=== PATIENT | male | born 1940 | race Caucasian/White ===

== ENCOUNTER 2018-09-13 09:15 | Emergency (ER) | payer MEDICARE, MEDICAID ==
[~2018-09-13] VITALS: Ht 165.1 cm; Wt 104.0 kg
[~2018-09-13 09:15] MED LIST: ALBU18HF2 IH; ATOR10TA PO; ATOR10TA69 MT; AZIT500T5 PO; CARV12.545 MT; FLUT1DIS3 INH; FURO40TA5 MT; GABA-529 PO; ISOS10TA2 MT; P50 PO; TIOT18CA3 IH
[2018-09-13] MEDS ORDERED: DULO60CA63 MT (09:35)
[2018-09-13] MEDS ORDERED: LISI-604 MT (09:35)
[2018-09-13] MEDS ORDERED: DONE10TA43 MT (09:35)
[2018-09-13] MEDS ORDERED: AMLO2.5T45 MT (09:35)
[2018-09-13] MEDS ORDERED: ALLO100T MT (09:35)
[2018-09-13] MEDS ORDERED: METF-414 MT (09:35)
[2018-09-13] MEDS ORDERED: CARV6.2548 MT (09:35)
[2018-09-13] MEDS ORDERED: BESI5DRO RIGHTEYE (09:35)
[2018-09-13] MEDS ORDERED: PRED10DR RIGHTEYE (09:35)
[2018-09-13] MEDS ORDERED: P20 MT (09:35)
[2018-09-13] MEDS ORDERED: DOCU-272 PO (09:35)
[2018-09-13] MEDS ORDERED: BROM3DRO RIGHTEYE (09:35)
[2018-09-13] MEDS ORDERED: LINA5TAB MT (09:35)
[2018-09-13] MEDS ORDERED: HYDROCODONE/ACETAMINOPHEN 5/325MG TABLET PO STA (10:44)
[2018-09-13] MEDS ORDERED: SODIUM CHLORIDE 0.9% 1,000 ML IV ONE (10:44)
[2018-09-13 12:13] LABS: CHLORIDE 98 mEq/L (98-107)
[2018-09-13 12:16] LABS: HEMATOCRIT. 39.4 % (42.0-52.0); HEMOGLOBIN. 13.2 g/dL (14.0-18.0); MEAN CORPUSCULAR HEMOGLOBIN 31.8 pg (28.0-32.0); MEAN CORPUSCULAR VOLUME 94.9 fL (80.0-94.0); PLATELET 225 x1000/uL (130-400); RED BLOOD CELL COUNT 4.15 mill/uL (4.7-6.1); RED CELL DISTRIBUTION WIDTH 16.6 % (11.6-14.6)
[2018-09-13 13:33] LABS: PLATELET ESTIMATE NORMAL
[2018-09-13 14:00] VITALS: BP 145/80
== END 2018-09-13 14:00 | disposition home or self-care (01) ==
LOC: ER 10:37
DX: B02.29 Other postherpetic nervous system involvement (principal); J45.909 Unspecified asthma, uncomplicated; E11.9 Type 2 diabetes mellitus without complications; F03.90 Unspecified dementia, unspecified severity, without behavioral disturbance, psychotic disturbance, mood disturbance, and anxiety; E78.00 Pure hypercholesterolemia, unspecified; I10 Essential (primary) hypertension; Z98.890 Other specified postprocedural states; Z79.899 Other long term (current) drug therapy
CPT/HCPCS: 36415; 71045; 80053; 85025; 93005; 99284; J7030

== ENCOUNTER 2019-03-21 12:19 | Inpatient (IN) | payer MEDICARE, MEDICAID ==
[~2019-03-21] VITALS: Ht 170.2 cm; Wt 93.4 kg
[~2019-03-21 12:19] MED LIST changes: +ALLO100T MT; +AMLO2.5T45 MT; +BESI5DRO RIGHTEYE; +BROM3DRO RIGHTEYE; -CARV12.545 MT; +CARV6.2548 MT; +DOCU-272 PO; +DONE10TA43 MT; +DULO60CA63 MT; +HYDR-4001 MT; +IPRA42SP BOTHNSTRLS; +LINA5TAB MT; +LISI-604 MT; +METF-414 MT; +P20 MT; +PRED10DR RIGHTEYE; +RISP05 PO; +TRAM150C25 PO
[2019-03-21] MEDS ORDERED: NITROGLYCERIN OINT 1GM/INCH UDPKT TD ONE (13:45)
[2019-03-21] MEDS ORDERED: FUROSEMIDE 40MG/4ML VIAL IV ONE (13:45)
[2019-03-21 14:32] LABS: BG BASE EXCESS -7.2 mmol/L (-2.0-2.0); BG BILEVEL POS AIRWAY PRESSURE 15/5; BG CARBOXYHEMOGLOBIN 0.3 % (0.5-1.5); BG DEOXYHEMOGLOBIN 6.4 % (0.0-5.0); BG HCO3 ACT 18.4 mmol/L (22.0-26.0); BG METHEMOGLOBIN 0.3 % (0.0-1.5); BG OXYGEN SATURATION 93.6 % (92.0-98.5); BG PCO2 37.7 mmHg (35.0-45.0); BG PH 7.307 (7.350-7.450); BG PO2 76.3 mmHg (75.0-100.0); BG SAMPLE SITE RIGHT RADIAL; BG VENT MODE MASK - BIPAP; BG VENT RATE 16 set
[2019-03-21 14:33] LABS: CHLORIDE 97 mEq/L (98-107)
[2019-03-21 14:34] LABS: BASOPHILS % 0.6 % (0.0-2.0); HEMATOCRIT. 28.6 % (42.0-52.0); HEMOGLOBIN. 9.5 g/dL (14.0-18.0); LYMPHOCYTES % 10.3 % (20.0-50.0); MEAN CORPUSCULAR HEMOGLOBIN 30.2 pg (28.0-32.0); MEAN CORPUSCULAR VOLUME 90.8 fL (80.0-94.0); MEAN PLATELET VOLUME 8.4 fl (7.4-10.4); MONOCYTES % 8.7 % (2.0-8.0); NEUTROPHILS % 79.4 % (40.0-76.0); PLATELET 293 x1000/uL (130-400); RED BLOOD CELL COUNT 3.15 mill/uL (4.7-6.1); RED CELL DISTRIBUTION WIDTH 16.3 % (11.6-14.6)
[2019-03-21 14:47] LABS: PARTIAL THROMBOPLASTIN TIME 31.7 sec (23.4-31.0); PROTHROMBIN TIME 10.1 sec (9.6-11.0)
[2019-03-21] MEDS ORDERED: SODIUM POLYSTYRENE SULFONATE 15 G/60 ML BOT PO ONE (15:00)
[2019-03-21] MEDS ORDERED: ALBUTEROL (0.083%) 2.5MG/3ML NEB HHN ONE (15:00)
[2019-03-21] MEDS ORDERED: SODIUM BICARBONATE 8.4% 1 MEQ/ML 50ML SYR IV ONE (15:00)
[2019-03-21] MEDS ORDERED: CALCIUM GLUCONATE 100MG/ML 10ML VIAL IV ONE (15:00)
[2019-03-21] MEDS ORDERED: DEXTROSE 50% WATER 50ML SYRINGE IV ONE (15:00)
[2019-03-21] MEDS ORDERED: ASPIRIN 325MG EC TABLET PO ONE (17:30)
[2019-03-21] MEDS ORDERED: GUAIFENESIN 200MG/10ML SUGAR FREE UDC PO PRN (17:45)
[2019-03-21] MEDS ORDERED: DOCUSATE SODIUM 100MG CAPSULE PO PRN (17:45)
[2019-03-21] MEDS ORDERED: CLONIDINE 0.1MG TABLET PO PRN (17:45)
[2019-03-21] MEDS ORDERED: ACETAMINOPHEN 650MG/20.3ML UDC GT PRN (17:45)
[2019-03-21] MEDS ORDERED: ACETAMINOPHEN 325MG TABLET PO PRN (17:45)
[2019-03-21] MEDS ORDERED: IPRATROPIUM/ALBUTEROL 0.5-3(2.5)MG/3ML NEB INH PRN (17:45)
[2019-03-21] MEDS ORDERED: ONDANSETRON HCL 4MG/2ML INJ IV PRN (17:45)
[2019-03-21] MEDS ORDERED: MAGNESIUM/ALUMINUM HYDROXIDE/SIMETHICONE 30ML UDC PO PRN (17:45)
[2019-03-21] MEDS ORDERED: ACETAMINOPHEN 650MG SUPP PR PRN (17:45)
[2019-03-21] MEDS ORDERED: DIPHENHYDRAMINE 50MG/ML VIAL IV PRN (17:45)
[2019-03-21] MEDS ORDERED: DEXTROSE 50% WATER 50ML SYRINGE IV PRN (18:00)
[2019-03-21 19:03] LABS: CLARITY URINE TURBID (CLEAR); COLOR URINE YELLOW (YELLOW); KETONES URINE NEGATIVE (NEGATIVE); LEUKOCYTE ESTERASE URINE NEGATIVE (NEGATIVE); NITRITE URINE NEGATIVE (NEGATIVE); OCCULT BLOOD URINE NEGATIVE (NEGATIVE); PROTEIN URINE 1+ (NEGATIVE); SPECIFIC GRAVITY URINE 1.016 (1.005-1.030); UROBILINOGEN URINE 0.2 E.U./dL (0.2-1.0)
[2019-03-21 19:14] LABS: *AMPHETAMINES SCREEN URINE NEGATIVE (NEGATIVE); CANNABINOID URINE SCREEN NEGATIVE (NEGATIVE)
[2019-03-21 19:16] LABS: *BARBITURATES SCREEN URINE NEGATIVE (NEGATIVE); *BENZODIAZEPINES SCREEN URINE NEGATIVE (NEGATIVE); *COCAINE SCREEN URINE NEGATIVE (NEGATIVE); METHADONE URINE SCREEN NEGATIVE (NEGATIVE); OPIATES URINE SCREEN NEGATIVE (NEGATIVE); PHENCYCLIDINE URINE SCREEN NEGATIVE (NEGATIVE)
[2019-03-21] MEDS ORDERED: NA PHOS,M-B/NA PHOS,DI-BA ENEMA 118ML PR PRN (21:00)
[2019-03-21] MEDS ORDERED: FUROSEMIDE 40MG/4ML VIAL IV SCH (21:44)
[2019-03-21] MEDS ORDERED: SODIUM BICARBONATE 8.4% 1 MEQ/ML 50ML SYR IV NR (21:45)
[2019-03-21 22:00] VITALS: BP 146/84
[2019-03-21] MEDS: SODIUM CHLORIDE 0.9% INJ 3ML FLUSH IVF SCH (22:21)
[2019-03-21 22:39] VITALS: BP 146/84
[2019-03-22] VITALS (12 sets, daily range): BP systolic 133–157; BP diastolic 51–92
[2019-03-22] MEDS: IPRATROPIUM/ALBUTEROL 0.5-3(2.5)MG/3ML NEB INH SCH ×4 (01:11→20:15)
[2019-03-22] MEDS: SODIUM CHLORIDE 0.9% INJ 3ML FLUSH IVF SCH ×3 (05:16→21:41)
[2019-03-22 06:22] LABS: BASOPHILS % 0.7 % (0.0-2.0); EOSINOPHILS % 0.8 % (0.0-5.0); HEMATOCRIT. 26.5 % (42.0-52.0); HEMOGLOBIN. 8.9 g/dL (14.0-18.0); LYMPHOCYTES % 11.2 % (20.0-50.0); MEAN CORPUSCULAR HEMOGLOBIN 30.3 pg (28.0-32.0); MEAN PLATELET VOLUME 9.1 fl (7.4-10.4); MONOCYTES % 11.5 % (2.0-8.0); NEUTROPHILS % 75.8 % (40.0-76.0); PLATELET 272 x1000/uL (130-400); RED BLOOD CELL COUNT 2.95 mill/uL (4.7-6.1); RED CELL DISTRIBUTION WIDTH 15.6 % (11.6-14.6)
[2019-03-22 06:30] LABS: CHLORIDE 100 mEq/L (98-107)
[2019-03-22 06:39] LABS: LDL CHOLESTEROL 90 mg/dL (5-100)
[2019-03-22 06:40] LABS: CREATINE KINASE MB FRACTION 4.5 ng/mL (0.5-3.6); PHOSPHORUS 4.9 mg/dL (2.5-4.9)
[2019-03-22 06:41] LABS: CREATINE KINASE 193 IU/L (39-308); HDL CHOLESTEROL 64 mg/dL (40-59)
[2019-03-22] MEDS: BLOOD SUGAR DIAGNOSTIC STRIP TEST SCH ×4 (07:30→21:39)
[2019-03-22] MEDS: INSULIN LISPRO 100 UNITS/ML SUBCUT SCH ×4 (08:00→21:00)
[2019-03-22] MEDS: BUDESONIDE 0.25MG/2ML NEB HHN SCH (09:23)
[2019-03-22] MEDS: FUROSEMIDE 40MG/4ML VIAL IV SCH (09:26)
[2019-03-22] MEDS: AMLODIPINE 5MG TABLET PO SCH ×2 (09:27→21:40)
[2019-03-22] MEDS: ENOXAPARIN 40MG/0.4ML SYR SUBCUT SCH (09:30)
[2019-03-22] MEDS ORDERED: SODIUM POLYSTYRENE SULFONATE 15 G/60 ML BOT PO SCH (11:00)
[2019-03-22 15:39] LABS: BG BASE EXCESS -4.2 mmol/L (-2.0-2.0); BG BILEVEL POS AIRWAY PRESSURE 15/5; BG CARBOXYHEMOGLOBIN 0.3 % (0.5-1.5); BG DEOXYHEMOGLOBIN 1.9 % (0.0-5.0); BG HCO3 ACT 20.7 mmol/L (22.0-26.0); BG METHEMOGLOBIN 0.3 % (0.0-1.5); BG OXYGEN SATURATION 98.1 % (92.0-98.5); BG OXYHEMOGLOBIN 97.5 % (94.0-97.0); BG PCO2 37.1 mmHg (35.0-45.0); BG PH 7.364 (7.350-7.450); BG PO2 115.8 mmHg (75.0-100.0); BG SAMPLE SITE RIGHT RADIAL; BG TOTAL HEMOGLOBIN 9.4 g/dL (12.0-18.0); BG VENT MODE MASK - BIPAP; BG VENT RATE 20 set
[2019-03-22] MEDS ORDERED: DIATR MEGLU/DIATRIZOATE SOLN 30ML PO SCH (15:45)
[2019-03-22] MEDS: LEVOTHYROXINE SODIUM 25MCG TABLET PO SCH (17:55)
[2019-03-22] MEDS: DOXAZOSIN MESYLATE 4MG TABLET PO SCH (21:40)
[2019-03-23] VITALS (12 sets, daily range): BP systolic 111–164; BP diastolic 53–74
[2019-03-23] MEDS: SODIUM CHLORIDE 0.9% INJ 3ML FLUSH IVF SCH ×3 (05:53→21:25)
[2019-03-23] MEDS ORDERED: LIDOCAINE HCL/PF 1% 2ML VIAL ONE (07:00)
[2019-03-23 07:09] LABS: BASOPHILS % 1.4 % (0.0-2.0); HEMATOCRIT. 24.6 % (42.0-52.0); HEMOGLOBIN. 8.3 g/dL (14.0-18.0); LYMPHOCYTES % 17.7 % (20.0-50.0); MEAN CORPUSCULAR HEMOGLOBIN 30.5 pg (28.0-32.0); MEAN CORPUSCULAR VOLUME 90.3 fL (80.0-94.0); MEAN PLATELET VOLUME 9.1 fl (7.4-10.4); MONOCYTES % 13.4 % (2.0-8.0); NEUTROPHILS % 66.5 % (40.0-76.0); PLATELET 230 x1000/uL (130-400); RED BLOOD CELL COUNT 2.73 mill/uL (4.7-6.1); RED CELL DISTRIBUTION WIDTH 16.1 % (11.6-14.6)
[2019-03-23] MEDS: BLOOD SUGAR DIAGNOSTIC STRIP TEST SCH ×4 (07:30→21:24)
[2019-03-23 07:34] LABS: CHLORIDE 103 mEq/L (98-107)
[2019-03-23 07:46] LABS: PHOSPHORUS 4.3 mg/dL (2.5-4.9)
[2019-03-23] MEDS: INSULIN LISPRO 100 UNITS/ML SUBCUT SCH ×4 (08:00→21:24)
[2019-03-23 08:26] LABS: BG BASE EXCESS -2.6 mmol/L (-2.0-2.0); BG BILEVEL POS AIRWAY PRESSURE 15/5; BG CARBOXYHEMOGLOBIN 0.3 % (0.5-1.5); BG DEOXYHEMOGLOBIN 1.9 % (0.0-5.0); BG FRACTION INSPIRED OXYGEN 40; BG HCO3 ACT 22.4 mmol/L (22.0-26.0); BG METHEMOGLOBIN 0.3 % (0.0-1.5); BG OXYGEN SATURATION 98.1 % (92.0-98.5); BG OXYHEMOGLOBIN 97.5 % (94.0-97.0); BG PH 7.367 (7.350-7.450); BG PO2 120.2 mmHg (75.0-100.0); BG SAMPLE SITE RIGHT BRACHIAL; BG TOTAL HEMOGLOBIN 9.3 g/dL (12.0-18.0); BG VENT MODE MASK - BIPAP
[2019-03-23] MEDS: BUDESONIDE 0.25MG/2ML NEB HHN SCH (08:56)
[2019-03-23] MEDS: IPRATROPIUM/ALBUTEROL 0.5-3(2.5)MG/3ML NEB INH SCH (08:56)
[2019-03-23] MEDS ORDERED: CARVEDILOL 6.25 MG TABLET PO SCH (09:00)
[2019-03-23] MEDS ORDERED: DIATR MEGLU/DIATRIZOATE SOLN 30ML PO SCH (09:15)
[2019-03-23] MEDS: LEVOTHYROXINE SODIUM 25MCG TABLET PO SCH (09:59)
[2019-03-23] MEDS: FUROSEMIDE 40MG/4ML VIAL IV SCH (10:02)
[2019-03-23] MEDS: ENOXAPARIN 40MG/0.4ML SYR SUBCUT SCH (10:03)
[2019-03-23] MEDS ORDERED: METHYLPREDNISOLONE SOD SUCC 125 MG/2 ML VIAL IV SCH (12:30)
[2019-03-23] MEDS: IPRATROPIUM BROMIDE (0.02%) 0.5MG/2.5ML NEB HHN SCH ×3 (12:44→21:05)
[2019-03-23] MEDS ORDERED: IPRATROPIUM/ALBUTEROL 0.5-3(2.5)MG/3ML NEB HHN PRN (12:45)
[2019-03-23] MEDS ORDERED: IPRATROPIUM BROMIDE (0.02%) 0.5MG/2.5ML NEB ONE (12:47)
[2019-03-23] MEDS: DILTIAZEM HCL 30MG TABLET PO SCH (18:10)
[2019-03-23] MEDS: METHYLPREDNISOLONE SOD SUCC 125 MG/2 ML VIAL IV SCH ×2 (18:10→21:24)
[2019-03-23] MEDS ORDERED: AMLODIPINE 5MG TABLET PO SCH (21:00)
[2019-03-23] MEDS: DOXAZOSIN MESYLATE 4MG TABLET PO SCH (21:24)
[2019-03-24] VITALS (11 sets, daily range): BP systolic 129–148; BP diastolic 51–83
[2019-03-24] MEDS: IPRATROPIUM BROMIDE (0.02%) 0.5MG/2.5ML NEB HHN SCH ×6 (00:47→21:28)
[2019-03-24] MEDS: DILTIAZEM HCL 30MG TABLET PO SCH ×3 (00:53→12:21)
[2019-03-24] MEDS: METHYLPREDNISOLONE SOD SUCC 125 MG/2 ML VIAL IV SCH (05:29)
[2019-03-24] MEDS: SODIUM CHLORIDE 0.9% INJ 3ML FLUSH IVF SCH ×3 (05:32→21:10)
[2019-03-24 06:01] LABS: HEMATOCRIT. 24.5 % (42.0-52.0); HEMOGLOBIN. 8.2 g/dL (14.0-18.0); MEAN CORPUSCULAR HEMOGLOBIN 30.2 pg (28.0-32.0); MEAN CORPUSCULAR VOLUME 90.2 fL (80.0-94.0); MEAN PLATELET VOLUME 8.4 fl (7.4-10.4); PLATELET 239 x1000/uL (130-400); RED BLOOD CELL COUNT 2.71 mill/uL (4.7-6.1); RED CELL DISTRIBUTION WIDTH 15.7 % (11.6-14.6)
[2019-03-24] MEDS: BLOOD SUGAR DIAGNOSTIC STRIP TEST SCH ×4 (07:30→21:11)
[2019-03-24 07:40] LABS: PHOSPHORUS 3.2 mg/dL (2.5-4.9)
[2019-03-24] MEDS: FUROSEMIDE 40MG/4ML VIAL IV SCH (09:00)
[2019-03-24] MEDS: LEVOTHYROXINE SODIUM 25MCG TABLET PO SCH (09:00)
[2019-03-24] MEDS: ENOXAPARIN 40MG/0.4ML SYR SUBCUT SCH (09:01)
[2019-03-24] MEDS: INSULIN LISPRO 100 UNITS/ML SUBCUT SCH ×4 (09:04→21:10)
[2019-03-24] MEDS: LINAGLIPTIN 5MG TABLET PO SCH (12:20)
[2019-03-24 13:03] LABS: PLATELET ESTIMATE NORMAL
[2019-03-24] MEDS: METHYLPREDNISOLONE SOD SUCC 40 MG/ML VIAL IV SCH ×2 (14:23→21:08)
[2019-03-24] MEDS: DOCUSATE SODIUM 250MG CAPSULE PO SCH (14:23)
[2019-03-24] MEDS: DILTIAZEM HCL 60MG TABLET PO SCH (21:09)
[2019-03-24] MEDS: DOXAZOSIN MESYLATE 4MG TABLET PO SCH (21:09)
[2019-03-24] MEDS: GABAPENTIN 100MG CAPSULE PO SCH (21:10)
[2019-03-25] VITALS: BP 123/55
[2019-03-25] MEDS: IPRATROPIUM BROMIDE (0.02%) 0.5MG/2.5ML NEB HHN SCH ×7 (00:49→21:53)
[2019-03-25 04:00] VITALS: BP 119/52
[2019-03-25] MEDS: METHYLPREDNISOLONE SOD SUCC 40 MG/ML VIAL IV SCH (05:52)
[2019-03-25] MEDS: LEVOTHYROXINE SODIUM 25MCG TABLET PO SCH (05:53)
[2019-03-25] MEDS: DILTIAZEM HCL 60MG TABLET PO SCH ×3 (05:57→21:07)
[2019-03-25] MEDS: SODIUM CHLORIDE 0.9% INJ 3ML FLUSH IVF SCH ×3 (06:51→21:50)
[2019-03-25 08:00] VITALS: BP 109/89
[2019-03-25] MEDS: BLOOD SUGAR DIAGNOSTIC STRIP TEST SCH ×4 (08:09→21:52)
[2019-03-25] MEDS: FUROSEMIDE 40MG/4ML VIAL IV SCH (08:12)
[2019-03-25] MEDS: LINAGLIPTIN 5MG TABLET PO SCH (08:12)
[2019-03-25] MEDS: ENOXAPARIN 40MG/0.4ML SYR SUBCUT SCH (08:12)
[2019-03-25] MEDS: INSULIN LISPRO 100 UNITS/ML SUBCUT SCH ×4 (08:28→21:51)
[2019-03-25] MEDS: DOCUSATE SODIUM 250MG CAPSULE PO SCH (08:28)
[2019-03-25] MEDS ORDERED: INSULIN GLARGINE UD 100 UNITS/ML SYR SUBCUT SCH (10:00)
[2019-03-25 12:00] VITALS: BP 113/59
[2019-03-25] MEDS: PREDNISONE 20MG TABLET PO SCH (17:18)
[2019-03-25 20:00] VITALS: BP 107/53
[2019-03-25] MEDS: DOXAZOSIN MESYLATE 4MG TABLET PO SCH (21:00)
[2019-03-25] MEDS: GABAPENTIN 100MG CAPSULE PO SCH (21:50)
[2019-03-26] VITALS: BP 124/58
[2019-03-26] MEDS: IPRATROPIUM BROMIDE (0.02%) 0.5MG/2.5ML NEB HHN SCH ×5 (01:03→16:19)
[2019-03-26 04:00] VITALS: BP 119/64
[2019-03-26] MEDS: SODIUM CHLORIDE 0.9% INJ 3ML FLUSH IVF SCH (06:20)
[2019-03-26] MEDS: DILTIAZEM HCL 60MG TABLET PO SCH ×2 (06:20→13:20)
[2019-03-26] MEDS: BLOOD SUGAR DIAGNOSTIC STRIP TEST SCH ×2 (06:20→13:05)
[2019-03-26 06:33] LABS: HEMOGLOBIN. 7.8 g/dL (14.0-18.0); MEAN CORPUSCULAR HEMOGLOBIN 30.3 pg (28.0-32.0); MEAN CORPUSCULAR VOLUME 88.8 fL (80.0-94.0); MEAN PLATELET VOLUME 9.1 fl (7.4-10.4); PLATELET 303 x1000/uL (130-400); RED BLOOD CELL COUNT 2.59 mill/uL (4.7-6.1); RED CELL DISTRIBUTION WIDTH 15.5 % (11.6-14.6)
[2019-03-26 08:00] VITALS: BP 152/74
[2019-03-26] MEDS: INSULIN LISPRO 100 UNITS/ML SUBCUT SCH ×4 (08:10→13:21)
[2019-03-26] MEDS: DOCUSATE SODIUM 250MG CAPSULE PO SCH (08:57)
[2019-03-26] MEDS: LEVOTHYROXINE SODIUM 25MCG TABLET PO SCH (08:57)
[2019-03-26] MEDS: LINAGLIPTIN 5MG TABLET PO SCH (08:57)
[2019-03-26] MEDS: ENOXAPARIN 40MG/0.4ML SYR SUBCUT SCH (08:58)
[2019-03-26] MEDS ORDERED: FUROSEMIDE 40MG TABLET PO SCH (09:00)
[2019-03-26] MEDS: PREDNISONE 20MG TABLET PO SCH (09:01)
[2019-03-26] MEDS ORDERED: INSULIN GLARGINE UD 100 UNITS/ML SYR SUBCUT SCH (10:00)
[2019-03-26 12:00] VITALS: BP 114/64
[2019-03-26 16:00] VITALS: BP 127/68
[2019-03-26 16:15] VITALS: BP 120/80
[2019-03-26 16:22] LABS: PLATELET ESTIMATE NORMAL
== END 2019-03-26 17:35 | DRG 291 ==
LOC: ER 12:19 → 5EST 17:08 → EDBEDREQ 17:31 → EDBEDREQTM 17:31 → ENRESERV 19:37 → 5EST 03-22 00:23 → 7WST 03-24 22:55
PROVIDERS: ADMIT Internal Medicine; ATTEND Internal Medicine
PROC: 5A09357 Assistance with Respiratory Ventilation, Less than 24 Consecutive Hours, Continuous Positive Airway Pressure (ICD-10-PCS; principal; 2019-03-21)
PROC: 5A09357 Assistance with Respiratory Ventilation, Less than 24 Consecutive Hours, Continuous Positive Airway Pressure (ICD-10-PCS; 2019-03-23)
PROC: 5A09357 Assistance with Respiratory Ventilation, Less than 24 Consecutive Hours, Continuous Positive Airway Pressure (ICD-10-PCS; 2019-03-25)
DX: I13.0 Hypertensive heart and chronic kidney disease with heart failure and stage 1 through stage 4 chronic kidney disease, or unspecified chronic kidney disease (principal); I50.33 Acute on chronic diastolic (congestive) heart failure; J96.00 Acute respiratory failure, unspecified whether with hypoxia or hypercapnia; N17.9 Acute kidney failure, unspecified; E87.2 Acidosis; E87.1 Hypo-osmolality and hyponatremia; J44.1 Chronic obstructive pulmonary disease with (acute) exacerbation; R18.8 Other ascites; E87.5 Hyperkalemia; R33.9 Retention of urine, unspecified; E66.01 Morbid (severe) obesity due to excess calories; E78.5 Hyperlipidemia, unspecified; F03.90 Unspecified dementia, unspecified severity, without behavioral disturbance, psychotic disturbance, mood disturbance, and anxiety; E11.40 Type 2 diabetes mellitus with diabetic neuropathy, unspecified; W18.39XA Other fall on same level, initial encounter; N13.9 Obstructive and reflux uropathy, unspecified; T38.0X5A Adverse effect of glucocorticoids and synthetic analogues, initial encounter; G47.33 Obstructive sleep apnea (adult) (pediatric); N18.3 Chronic kidney disease, stage 3 (moderate); E11.22 Type 2 diabetes mellitus with diabetic chronic kidney disease; D64.9 Anemia, unspecified; E78.00 Pure hypercholesterolemia, unspecified; I48.2 Chronic atrial fibrillation; Z79.4 Long term (current) use of insulin; Z79.899 Other long term (current) drug therapy; Z87.891 Personal history of nicotine dependence; Z79.2 Long term (current) use of antibiotics; Z79.84 Long term (current) use of oral hypoglycemic drugs; Y92.89 Other specified places as the place of occurrence of the external cause; Y93.89 Activity, other specified; Y99.8 Other external cause status
CPT/HCPCS: 36415; 36600; 71045; 74018; 74176; 76770; 80048; 80061; 80305; 82140; 82375; 82533; 82550; 82553; 82805; 82962; 83735; 83880; 84100; 84132; 84443; 84484; 93005; 93306; 94640; 94660; 96374; 97166; 99285; A6261; J0610; J1650; J1815; J1940; J2920; J2930; J3490; J7512; J7611; J7620; J7626; Q9963

== ENCOUNTER 2019-12-07 11:53 | Inpatient (IN) | payer MEDICARE, MEDICAID ==
[~2019-12-07] VITALS: Ht 167.6 cm; Wt 110.7 kg
[~2019-12-07 11:53] MED LIST changes: -ATOR10TA69 MT; -AZIT500T5 PO; +AZIT500T8 PO; -DULO60CA63 MT; +DULO60CA64 MT; -P50 PO
[2019-12-07] MEDS ORDERED: METHYLPREDNISOLONE SOD SUCC 125 MG/2 ML VIAL IV STA (11:58)
[2019-12-07] MEDS ORDERED: ALBUTEROL (0.083%) 2.5MG/3ML NEB HHN STA (11:58)
[2019-12-07] MEDS ORDERED: IPRATROPIUM BROMIDE (0.02%) 0.5MG/2.5ML NEB HHN STA (11:58)
[2019-12-07] MEDS ORDERED: FUROSEMIDE 40MG/4ML VIAL IV ONE (12:00)
[2019-12-07] MEDS ORDERED: ASPIRIN 81MG TABLET PO ONE (12:00)
[2019-12-07] MEDS ORDERED: NITROGLYCERIN OINT 1GM/INCH UDPKT TD ONE (12:00)
[2019-12-07] MEDS ORDERED: MAGNESIUM 2 G PREMIX 50 ML IV ONE (12:00)
[2019-12-07] MEDS ORDERED: ALBUTEROL (0.083%) 2.5MG/3ML NEB ONE ×2 (12:15→14:14)
[2019-12-07] MEDS ORDERED: ALBUTEROL (0.5%) 2.5MG/0.5ML NEB HHN ONE (12:15)
[2019-12-07] MEDS ORDERED: IPRATROPIUM BROMIDE (0.02%) 0.5MG/2.5ML NEB ONE (12:16)
[2019-12-07 12:22] LABS: CHLORIDE 97 mEq/L (98-107)
[2019-12-07 12:41] LABS: HEMATOCRIT. 27.9 % (42.0-52.0); HEMOGLOBIN. 9.3 g/dL (14.0-18.0); MEAN CORPUSCULAR HEMOGLOBIN 28.6 pg (28.0-32.0); MEAN CORPUSCULAR VOLUME 86.1 fL (80.0-94.0); MEAN PLATELET VOLUME 7.4 fl (7.4-10.4); PLATELET 292 x1000/uL (130-400); RED BLOOD CELL COUNT 3.23 mill/uL (4.7-6.1); RED CELL DISTRIBUTION WIDTH 19.2 % (11.6-14.6)
[2019-12-07 13:11] LABS: PLATELET ESTIMATE NORMAL
[2019-12-07 13:11] LABS: BG BASE EXCESS -4.8 mmol/L (-2.0-2.0); BG BILEVEL POS AIRWAY PRESSURE 18/5; BG CARBOXYHEMOGLOBIN 0.3 % (0.5-1.5); BG DEOXYHEMOGLOBIN 1.4 % (0.0-5.0); BG FRACTION INSPIRED OXYGEN 35; BG HCO3 ACT 20.4 mmol/L (22.0-26.0); BG METHEMOGLOBIN 0.1 % (0.0-1.5); BG OXYGEN SATURATION 98.6 % (92.0-98.5); BG OXYHEMOGLOBIN 98.2 % (94.0-97.0); BG PH 7.348 (7.350-7.450); BG PO2 130.9 mmHg (75.0-100.0); BG SAMPLE SITE RIGHT RADIAL; BG TOTAL HEMOGLOBIN 9.2 g/dL (12.0-18.0); BG VENT MODE MASK - BIPAP; BG VENT RATE 27 set
[2019-12-07] MEDS ORDERED: ALBUTEROL (0.083%) 2.5MG/3ML NEB HHN ONE (14:00)
[2019-12-07] MEDS ORDERED: INSULIN REGULAR (HUMULIN R) 300UNITS/3ML IV ONE (14:00)
[2019-12-07] MEDS ORDERED: SODIUM BICARBONATE 8.4% 1 MEQ/ML 50ML SYR IV ONE (14:00)
[2019-12-07] MEDS ORDERED: SODIUM POLYSTYRENE SULFONATE 15 G/60 ML BOT PO ONE (14:00)
[2019-12-07] MEDS ORDERED: DEXTROSE 50% WATER 50ML SYRINGE IV ONE (14:00)
[2019-12-07] MEDS ORDERED: IPRATROPIUM/ALBUTEROL 0.5-3(2.5)MG/3ML NEB HHN PRN (16:30)
[2019-12-07 18:16] VITALS: BP 118/89
[2019-12-07 20:00] VITALS: BP 136/68
[2019-12-07] MEDS ORDERED: IPRATROPIUM/ALBUTEROL 0.5-3(2.5)MG/3ML NEB HHN SCH (20:00)
[2019-12-07] MEDS ORDERED: ONDANSETRON HCL 4MG/2ML INJ IV PRN (20:15)
[2019-12-07] MEDS ORDERED: IPRATROPIUM/ALBUTEROL 0.5-3(2.5)MG/3ML NEB NEB PRN (20:15)
[2019-12-07] MEDS ORDERED: ACETAMINOPHEN 325MG TABLET PO PRN (20:15)
[2019-12-07] MEDS ORDERED: CLONIDINE 0.1MG TABLET PO PRN (20:15)
[2019-12-07] MEDS ORDERED: DEXTROSE 50% WATER 50ML SYRINGE IV PRN (20:15)
[2019-12-07] MEDS ORDERED: MAGNESIUM/ALUMINUM HYDROXIDE/SIMETHICONE 30ML UDC PO PRN (20:15)
[2019-12-07] MEDS: INSULIN LISPRO 100 UNITS/ML SUBCUT SCH (20:56)
[2019-12-07] MEDS: BLOOD SUGAR DIAGNOSTIC STRIP TEST SCH (20:56)
[2019-12-07] MEDS: ENOXAPARIN 30MG/0.3ML SYR SUBCUT SCH (20:57)
[2019-12-07] MEDS: DOXAZOSIN MESYLATE 4MG TABLET PO SCH (21:00)
[2019-12-07] MEDS: SODIUM CHLORIDE 0.9% INJ 3ML FLUSH IVF SCH (21:09)
[2019-12-07 21:17] LABS: CLARITY URINE CLOUDY (CLEAR); COLOR URINE YELLOW (YELLOW); KETONES URINE NEGATIVE (NEGATIVE); LEUKOCYTE ESTERASE URINE NEGATIVE (NEGATIVE); NITRITE URINE NEGATIVE (NEGATIVE); OCCULT BLOOD URINE NEGATIVE (NEGATIVE); PROTEIN URINE 2+ (NEGATIVE); SPECIFIC GRAVITY URINE 1.012 (1.005-1.030); UROBILINOGEN URINE 0.2 E.U./dL (0.2-1.0)
[2019-12-07 21:32] LABS: SODIUM URINE RANDOM 28 mEq/L
[2019-12-07 22:00] VITALS: BP 140/69
[2019-12-08] VITALS (11 sets, daily range): BP systolic 116–162; BP diastolic 62–109
[2019-12-08] MEDS: IPRATROPIUM/ALBUTEROL 0.5-3(2.5)MG/3ML NEB HHN SCH ×4 (00:03→21:58)
[2019-12-08] MEDS: SODIUM CHLORIDE 0.9% INJ 3ML FLUSH IVF SCH ×3 (06:10→21:01)
[2019-12-08] MEDS: BLOOD SUGAR DIAGNOSTIC STRIP TEST SCH ×4 (06:10→20:49)
[2019-12-08] MEDS: LEVOTHYROXINE SODIUM 25MCG TABLET PO SCH (06:10)
[2019-12-08] MEDS: INSULIN LISPRO 100 UNITS/ML SUBCUT SCH ×4 (06:10→21:04)
[2019-12-08 07:24] LABS: HEMATOCRIT. 28.6 % (42.0-52.0); HEMOGLOBIN. 9.6 g/dL (14.0-18.0); MEAN CORPUSCULAR HEMOGLOBIN 28.9 pg (28.0-32.0); MEAN CORPUSCULAR VOLUME 85.6 fL (80.0-94.0); MEAN PLATELET VOLUME 7.9 fl (7.4-10.4); PLATELET 302 x1000/uL (130-400); RED BLOOD CELL COUNT 3.34 mill/uL (4.7-6.1); RED CELL DISTRIBUTION WIDTH 18.5 % (11.6-14.6)
[2019-12-08 08:07] LABS: BG BASE EXCESS -0.7 mmol/L (-2.0-2.0); BG BILEVEL POS AIRWAY PRESSURE 18/5; BG CARBOXYHEMOGLOBIN 0.1 % (0.5-1.5); BG DEOXYHEMOGLOBIN 1.3 % (0.0-5.0); BG FRACTION INSPIRED OXYGEN 35; BG HCO3 ACT 24.5 mmol/L (22.0-26.0); BG METHEMOGLOBIN 0.1 % (0.0-1.5); BG OXYGEN SATURATION 98.7 % (92.0-98.5); BG OXYHEMOGLOBIN 98.5 % (94.0-97.0); BG PCO2 42.4 mmHg (35.0-45.0); BG PH 7.379 (7.350-7.450); BG PO2 138.2 mmHg (75.0-100.0); BG SAMPLE SITE RIGHT BRACHIAL; BG TOTAL HEMOGLOBIN 10.1 g/dL (12.0-18.0); BG VENT MODE MASK - BIPAP; BG VENT RATE 16 set
[2019-12-08] MEDS: DOCUSATE SODIUM 250MG CAPSULE PO SCH (08:15)
[2019-12-08] MEDS: ENOXAPARIN 30MG/0.3ML SYR SUBCUT SCH ×2 (08:16→20:49)
[2019-12-08] MEDS: TAMSULOSIN HCL 0.4MG SR CAPSULE PO SCH (08:16)
[2019-12-08 11:23] LABS: PHOSPHORUS 4.7 mg/dL (2.5-4.9)
[2019-12-08 13:36] LABS: PLATELET ESTIMATE NORMAL
[2019-12-08] MEDS ORDERED: FUROSEMIDE 40MG/4ML VIAL IVP NR (13:45)
[2019-12-08] MEDS: METHYLPREDNISOLONE SOD SUCC 125 MG/2 ML VIAL IV SCH ×2 (14:32→21:00)
[2019-12-08] MEDS: DILTIAZEM HCL 30MG TABLET PO SCH ×2 (14:33→22:55)
[2019-12-08] MEDS: ALPRAZOLAM 0.25 MG TABLET PO SCH ×2 (14:33→22:55)
[2019-12-08] MEDS ORDERED: SODIUM POLYSTYRENE SULFONATE 15 G/60 ML BOT PO NR (15:00)
[2019-12-08] MEDS: BUDESONIDE 0.5MG/2ML NEB HHN SCH ×2 (16:22→21:58)
[2019-12-08] MEDS: PHENAZOPYRIDINE HCL 100MG TABLET PO SCH (16:34)
[2019-12-08] MEDS: DIGOXIN 500MCG/2ML AMP IV SCH (17:18)
[2019-12-08] MEDS: DIVALPROEX SODIUM 250MG DR TABLET PO SCH (20:48)
[2019-12-08] MEDS: GABAPENTIN 300MG CAPSULE PO SCH (20:48)
[2019-12-08] MEDS: RISPERIDONE 1MG TABLET PO SCH (20:49)
[2019-12-08] MEDS: DOXAZOSIN MESYLATE 4MG TABLET PO SCH (20:49)
[2019-12-09] VITALS (12 sets, daily range): BP systolic 134–162; BP diastolic 58–108
[2019-12-09] MEDS: IPRATROPIUM/ALBUTEROL 0.5-3(2.5)MG/3ML NEB HHN SCH ×4 (03:24→19:54)
[2019-12-09] MEDS: LEVOTHYROXINE SODIUM 25MCG TABLET PO SCH ×2 (06:04→06:32)
[2019-12-09] MEDS: BLOOD SUGAR DIAGNOSTIC STRIP TEST SCH ×4 (06:24→20:39)
[2019-12-09] MEDS: SODIUM CHLORIDE 0.9% INJ 3ML FLUSH IVF SCH ×3 (06:32→21:08)
[2019-12-09] MEDS: ALPRAZOLAM 0.25 MG TABLET PO SCH ×3 (06:32→21:04)
[2019-12-09] MEDS: METHYLPREDNISOLONE SOD SUCC 125 MG/2 ML VIAL IV SCH (06:32)
[2019-12-09] MEDS: DILTIAZEM HCL 30MG TABLET PO SCH (06:33)
[2019-12-09 07:26] LABS: PHOSPHORUS 3.6 mg/dL (2.5-4.9)
[2019-12-09 07:28] LABS: HEMATOCRIT. 28.5 % (42.0-52.0); HEMOGLOBIN. 9.4 g/dL (14.0-18.0); MEAN CORPUSCULAR HEMOGLOBIN 28.3 pg (28.0-32.0); MEAN CORPUSCULAR VOLUME 85.4 fL (80.0-94.0); MEAN PLATELET VOLUME 7.7 fl (7.4-10.4); PLATELET 339 x1000/uL (130-400); RED BLOOD CELL COUNT 3.34 mill/uL (4.7-6.1)
[2019-12-09] MEDS: BUDESONIDE 0.5MG/2ML NEB HHN SCH ×2 (08:11→19:54)
[2019-12-09] MEDS: ENOXAPARIN 30MG/0.3ML SYR SUBCUT SCH ×2 (08:15→20:36)
[2019-12-09] MEDS: DOCUSATE SODIUM 250MG CAPSULE PO SCH (08:15)
[2019-12-09] MEDS: TAMSULOSIN HCL 0.4MG SR CAPSULE PO SCH (08:15)
[2019-12-09] MEDS: PHENAZOPYRIDINE HCL 100MG TABLET PO SCH ×3 (08:16→16:27)
[2019-12-09] MEDS: DIVALPROEX SODIUM 250MG DR TABLET PO SCH ×2 (08:16→20:36)
[2019-12-09] MEDS: LINAGLIPTIN 5MG TABLET PO SCH (08:16)
[2019-12-09] MEDS: RISPERIDONE 1MG TABLET PO SCH ×2 (08:16→20:36)
[2019-12-09] MEDS: INSULIN LISPRO 100 UNITS/ML SUBCUT SCH ×4 (08:17→20:39)
[2019-12-09] MEDS ORDERED: FUROSEMIDE 40MG/4ML VIAL IVP NR (08:30)
[2019-12-09 09:05] LABS: PLATELET ESTIMATE NORMAL
[2019-12-09] MEDS: DILTIAZEM HCL 60MG TABLET PO SCH ×4 (10:00→23:06)
[2019-12-09] MEDS: METHYLPREDNISOLONE SOD SUCC 40 MG/ML VIAL IV SCH ×2 (13:57→21:04)
[2019-12-09] MEDS: DIGOXIN 500MCG/2ML AMP IV SCH (18:03)
[2019-12-09] MEDS: DOXAZOSIN MESYLATE 4MG TABLET PO SCH (20:37)
[2019-12-09] MEDS: GABAPENTIN 300MG CAPSULE PO SCH (20:37)
[2019-12-10] VITALS: BP 154/87
[2019-12-10] MEDS: IPRATROPIUM/ALBUTEROL 0.5-3(2.5)MG/3ML NEB HHN SCH ×4 (01:28→21:50)
[2019-12-10 02:00] VITALS: BP 138/78
[2019-12-10 04:00] VITALS: BP 127/65
[2019-12-10 05:31] VITALS: BP 141/82
[2019-12-10] MEDS: METHYLPREDNISOLONE SOD SUCC 40 MG/ML VIAL IV SCH ×3 (05:44→21:28)
[2019-12-10] MEDS: ALPRAZOLAM 0.25 MG TABLET PO SCH (05:44)
[2019-12-10] MEDS: LEVOTHYROXINE SODIUM 25MCG TABLET PO SCH (05:44)
[2019-12-10] MEDS: SODIUM CHLORIDE 0.9% INJ 3ML FLUSH IVF SCH ×3 (05:45→21:28)
[2019-12-10] MEDS: DILTIAZEM HCL 60MG TABLET PO SCH (05:47)
[2019-12-10] MEDS: BLOOD SUGAR DIAGNOSTIC STRIP TEST SCH ×4 (06:16→20:17)
[2019-12-10 06:47] LABS: CHLORIDE 100 mEq/L (98-107)
[2019-12-10 06:51] LABS: PHOSPHORUS 3.5 mg/dL (2.5-4.9)
[2019-12-10 07:10] LABS: HEMATOCRIT. 28.7 % (42.0-52.0); HEMOGLOBIN. 9.7 g/dL (14.0-18.0); MEAN CORPUSCULAR HEMOGLOBIN 29.3 pg (28.0-32.0); MEAN CORPUSCULAR VOLUME 86.3 fL (80.0-94.0); MEAN PLATELET VOLUME 8.2 fl (7.4-10.4); PLATELET 291 x1000/uL (130-400); RED BLOOD CELL COUNT 3.32 mill/uL (4.7-6.1)
[2019-12-10] MEDS: BUDESONIDE 0.5MG/2ML NEB HHN SCH ×2 (07:35→21:51)
[2019-12-10] MEDS ORDERED: FUROSEMIDE 40MG/4ML VIAL IVP SCH (08:00)
[2019-12-10] MEDS: DOCUSATE SODIUM 250MG CAPSULE PO SCH (08:16)
[2019-12-10] MEDS: DIVALPROEX SODIUM 250MG DR TABLET PO SCH ×2 (08:16→20:15)
[2019-12-10] MEDS: RISPERIDONE 1MG TABLET PO SCH ×2 (08:17→20:15)
[2019-12-10] MEDS: LINAGLIPTIN 5MG TABLET PO SCH (08:17)
[2019-12-10] MEDS: TAMSULOSIN HCL 0.4MG SR CAPSULE PO SCH (08:23)
[2019-12-10] MEDS: ENOXAPARIN 30MG/0.3ML SYR SUBCUT SCH ×2 (08:24→20:17)
[2019-12-10] MEDS: INSULIN LISPRO 100 UNITS/ML SUBCUT SCH ×4 (08:33→20:40)
[2019-12-10 08:35] LABS: PLATELET ESTIMATE NORMAL
[2019-12-10] MEDS: PHENAZOPYRIDINE HCL 100MG TABLET PO SCH ×3 (08:35→17:37)
[2019-12-10] MEDS: DILTIAZEM HCL 90MG TABLET PO SCH ×2 (12:11→17:39)
[2019-12-10 14:06] LABS: BG BASE EXCESS 2.5 mmol/L (-2.0-2.0); BG BILEVEL POS AIRWAY PRESSURE 18/5; BG CARBOXYHEMOGLOBIN 0.2 % (0.5-1.5); BG DEOXYHEMOGLOBIN 5.5 % (0.0-5.0); BG HCO3 ACT 27.9 mmol/L (22.0-26.0); BG METHEMOGLOBIN 0.3 % (0.0-1.5); BG OXYGEN SATURATION 94.5 % (92.0-98.5); BG PCO2 46.6 mmHg (35.0-45.0); BG PH 7.395 (7.350-7.450); BG PO2 74.2 mmHg (75.0-100.0); BG SAMPLE SITE RIGHT BRACHIAL; BG TOTAL HEMOGLOBIN 10.6 g/dL (12.0-18.0); BG VENT MODE MASK - BIPAP; BG VENT RATE 16 set
[2019-12-10] MEDS: LOSARTAN POTASSIUM 25 MG TABLET PO SCH (14:10)
[2019-12-10] MEDS: FUROSEMIDE 40MG/4ML VIAL IVP SCH ×2 (14:10→17:35)
[2019-12-10 20:00] VITALS: BP 132/71
[2019-12-10 20:12] LABS: CLARITY URINE CLEAR (CLEAR); COLOR URINE DARK YELLOW (YELLOW); KETONES URINE NEGATIVE (NEGATIVE); LEUKOCYTE ESTERASE URINE NEGATIVE (NEGATIVE); NITRITE URINE POSITIVE (NEGATIVE); OCCULT BLOOD URINE 2+ (NEGATIVE); PROTEIN URINE TRACE (NEGATIVE); SPECIFIC GRAVITY URINE 1.008 (1.005-1.030)
[2019-12-10] MEDS: GABAPENTIN 300MG CAPSULE PO SCH (20:15)
[2019-12-10] MEDS: DOXAZOSIN MESYLATE 4MG TABLET PO SCH (20:16)
[2019-12-10 22:00] VITALS: BP 135/47
[2019-12-11] VITALS (16 sets, daily range): BP systolic 108–150; BP diastolic 48–78
[2019-12-11] MEDS: DILTIAZEM HCL 90MG TABLET PO SCH ×4 (00:26→18:00)
[2019-12-11] MEDS: IPRATROPIUM/ALBUTEROL 0.5-3(2.5)MG/3ML NEB HHN SCH ×6 (04:13→21:15)
[2019-12-11] MEDS: METHYLPREDNISOLONE SOD SUCC 40 MG/ML VIAL IV SCH ×3 (05:27→22:54)
[2019-12-11] MEDS: SODIUM CHLORIDE 0.9% INJ 3ML FLUSH IVF SCH ×3 (05:28→22:54)
[2019-12-11] MEDS: LEVOTHYROXINE SODIUM 25MCG TABLET PO SCH (06:25)
[2019-12-11] MEDS: BLOOD SUGAR DIAGNOSTIC STRIP TEST SCH ×4 (06:26→20:41)
[2019-12-11 07:04] LABS: HEMATOCRIT. 29.8 % (42.0-52.0); HEMOGLOBIN. 10.1 g/dL (14.0-18.0); MEAN CORPUSCULAR VOLUME 85.8 fL (80.0-94.0); MEAN PLATELET VOLUME 7.8 fl (7.4-10.4); PLATELET 306 x1000/uL (130-400); RED BLOOD CELL COUNT 3.47 mill/uL (4.7-6.1); RED CELL DISTRIBUTION WIDTH 18.4 % (11.6-14.6)
[2019-12-11 07:18] LABS: CHLORIDE 101 mEq/L (98-107)
[2019-12-11 07:25] LABS: PHOSPHORUS 3.6 mg/dL (2.5-4.9)
[2019-12-11 07:57] LABS: PLATELET ESTIMATE NORMAL
[2019-12-11] MEDS: BUDESONIDE 0.5MG/2ML NEB HHN SCH (08:11)
[2019-12-11] MEDS: FUROSEMIDE 40MG/4ML VIAL IVP SCH ×2 (08:30→17:16)
[2019-12-11] MEDS: PHENAZOPYRIDINE HCL 100MG TABLET PO SCH ×2 (08:33→13:09)
[2019-12-11] MEDS: INSULIN LISPRO 100 UNITS/ML SUBCUT SCH ×4 (08:38→21:03)
[2019-12-11] MEDS: LOSARTAN POTASSIUM 25 MG TABLET PO SCH (08:47)
[2019-12-11] MEDS: RISPERIDONE 1MG TABLET PO SCH ×2 (08:48→21:01)
[2019-12-11] MEDS: DIVALPROEX SODIUM 250MG DR TABLET PO SCH ×2 (08:48→21:02)
[2019-12-11] MEDS: LINAGLIPTIN 5MG TABLET PO SCH (08:48)
[2019-12-11] MEDS: TAMSULOSIN HCL 0.4MG SR CAPSULE PO SCH (08:49)
[2019-12-11] MEDS: DOCUSATE SODIUM 250MG CAPSULE PO SCH (08:49)
[2019-12-11] MEDS: ENOXAPARIN 30MG/0.3ML SYR SUBCUT SCH ×2 (08:52→21:01)
[2019-12-11 09:10] LABS: BG BASE EXCESS 0.8 mmol/L (-2.0-2.0); BG CARBOXYHEMOGLOBIN 0.4 % (0.5-1.5); BG FRACTION INSPIRED OXYGEN 40; BG HCO3 ACT 27.3 mmol/L (22.0-26.0); BG METHEMOGLOBIN 0.3 % (0.0-1.5); BG OXYGEN SATURATION 89.9 % (92.0-98.5); BG OXYHEMOGLOBIN 89.3 % (94.0-97.0); BG PCO2 52.5 mmHg (35.0-45.0); BG PH 7.334 (7.350-7.450); BG PO2 63.5 mmHg (75.0-100.0); BG SAMPLE SITE RIGHT RADIAL; BG TOTAL HEMOGLOBIN 10.8 g/dL (12.0-18.0); BG VENT MODE NASAL CANNULA
[2019-12-11] MEDS: DOXAZOSIN MESYLATE 4MG TABLET PO SCH (21:02)
[2019-12-11] MEDS: GABAPENTIN 300MG CAPSULE PO SCH (21:02)
[2019-12-12] VITALS (15 sets, daily range): BP systolic 112–155; BP diastolic 53–79
[2019-12-12] MEDS: IPRATROPIUM/ALBUTEROL 0.5-3(2.5)MG/3ML NEB HHN SCH ×4 (02:17→20:09)
[2019-12-12] MEDS: METHYLPREDNISOLONE SOD SUCC 40 MG/ML VIAL IV SCH ×3 (05:45→22:48)
[2019-12-12] MEDS: LEVOTHYROXINE SODIUM 25MCG TABLET PO SCH (05:45)
[2019-12-12] MEDS: DILTIAZEM HCL 90MG TABLET PO SCH ×5 (05:46→23:08)
[2019-12-12] MEDS: BLOOD SUGAR DIAGNOSTIC STRIP TEST SCH ×4 (05:48→21:32)
[2019-12-12] MEDS: SODIUM CHLORIDE 0.9% INJ 3ML FLUSH IVF SCH ×3 (05:58→22:48)
[2019-12-12 07:10] LABS: HEMATOCRIT. 31.2 % (42.0-52.0); HEMOGLOBIN. 10.2 g/dL (14.0-18.0); MEAN CORPUSCULAR HEMOGLOBIN 28.4 pg (28.0-32.0); MEAN CORPUSCULAR VOLUME 86.8 fL (80.0-94.0); MEAN PLATELET VOLUME 7.5 fl (7.4-10.4); PLATELET 311 x1000/uL (130-400); RED BLOOD CELL COUNT 3.59 mill/uL (4.7-6.1); RED CELL DISTRIBUTION WIDTH 18.9 % (11.6-14.6)
[2019-12-12] MEDS: INSULIN LISPRO 100 UNITS/ML SUBCUT SCH ×4 (08:35→21:43)
[2019-12-12] MEDS: ENOXAPARIN 30MG/0.3ML SYR SUBCUT SCH ×2 (08:36→21:30)
[2019-12-12] MEDS: FUROSEMIDE 40MG/4ML VIAL IVP SCH (08:36)
[2019-12-12] MEDS: DIVALPROEX SODIUM 250MG DR TABLET PO SCH ×2 (08:36→21:31)
[2019-12-12] MEDS: RISPERIDONE 1MG TABLET PO SCH (08:36)
[2019-12-12] MEDS: DOCUSATE SODIUM 250MG CAPSULE PO SCH (08:36)
[2019-12-12] MEDS: LOSARTAN POTASSIUM 25 MG TABLET PO SCH (08:38)
[2019-12-12] MEDS: TAMSULOSIN HCL 0.4MG SR CAPSULE PO SCH (08:38)
[2019-12-12] MEDS: LINAGLIPTIN 5MG TABLET PO SCH (08:39)
[2019-12-12 09:10] LABS: BG BASE EXCESS 5.9 mmol/L (-2.0-2.0); BG DEOXYHEMOGLOBIN 4.7 % (0.0-5.0); BG HCO3 ACT 32.6 mmol/L (22.0-26.0); BG METHEMOGLOBIN 0.3 % (0.0-1.5); BG OXYGEN SATURATION 95.3 % (92.0-98.5); BG PCO2 59.1 mmHg (35.0-45.0); BG PO2 83.4 mmHg (75.0-100.0); BG SAMPLE SITE RIGHT BRACHIAL; BG TOTAL HEMOGLOBIN 10.3 g/dL (12.0-18.0); BG VENT MODE NASAL CANNULA
[2019-12-12 12:55] LABS: PLATELET ESTIMATE NORMAL
[2019-12-12 13:25] LABS: BG BASE EXCESS 5.8 mmol/L (-2.0-2.0); BG BILEVEL POS AIRWAY PRESSURE 18/8; BG CARBOXYHEMOGLOBIN 0.2 % (0.5-1.5); BG DEOXYHEMOGLOBIN 2.2 % (0.0-5.0); BG HCO3 ACT 32.3 mmol/L (22.0-26.0); BG METHEMOGLOBIN 0.2 % (0.0-1.5); BG OXYGEN SATURATION 97.8 % (92.0-98.5); BG OXYHEMOGLOBIN 97.4 % (94.0-97.0); BG PCO2 56.9 mmHg (35.0-45.0); BG PH 7.372 (7.350-7.450); BG PO2 107.7 mmHg (75.0-100.0); BG SAMPLE SITE RIGHT RADIAL; BG TOTAL HEMOGLOBIN 10.7 g/dL (12.0-18.0); BG VENT MODE MASK - BIPAP; BG VENT RATE 16 set
[2019-12-12] MEDS: OLANZAPINE 5MG TABLET PO SCH (16:47)
[2019-12-12] MEDS: DOXAZOSIN MESYLATE 4MG TABLET PO SCH (21:28)
[2019-12-12] MEDS: LORAZEPAM 0.5MG TABLET PO PRN (21:29)
[2019-12-12] MEDS: GABAPENTIN 300MG CAPSULE PO SCH (21:32)
[2019-12-13] VITALS (11 sets, daily range): BP systolic 131–153; BP diastolic 54–83
[2019-12-13] MEDS: IPRATROPIUM/ALBUTEROL 0.5-3(2.5)MG/3ML NEB HHN SCH ×4 (03:09→20:13)
[2019-12-13] MEDS: BLOOD SUGAR DIAGNOSTIC STRIP TEST SCH ×4 (05:56→21:00)
[2019-12-13] MEDS: LEVOTHYROXINE SODIUM 25MCG TABLET PO SCH (05:56)
[2019-12-13] MEDS: METHYLPREDNISOLONE SOD SUCC 40 MG/ML VIAL IV SCH ×3 (06:07→21:16)
[2019-12-13] MEDS: DILTIAZEM HCL 90MG TABLET PO SCH ×4 (06:07→23:53)
[2019-12-13] MEDS: SODIUM CHLORIDE 0.9% INJ 3ML FLUSH IVF SCH ×3 (06:08→22:32)
[2019-12-13] MEDS: INSULIN LISPRO 100 UNITS/ML SUBCUT SCH ×4 (08:30→22:38)
[2019-12-13] MEDS: DOCUSATE SODIUM 250MG CAPSULE PO SCH (08:31)
[2019-12-13] MEDS: ENOXAPARIN 30MG/0.3ML SYR SUBCUT SCH ×2 (08:31→21:18)
[2019-12-13] MEDS: LOSARTAN POTASSIUM 25 MG TABLET PO SCH (08:32)
[2019-12-13] MEDS: LINAGLIPTIN 5MG TABLET PO SCH (08:32)
[2019-12-13] MEDS: DIVALPROEX SODIUM 250MG DR TABLET PO SCH ×3 (08:32→21:16)
[2019-12-13] MEDS: TAMSULOSIN HCL 0.4MG SR CAPSULE PO SCH (08:32)
[2019-12-13] MEDS: OLANZAPINE 5MG TABLET PO SCH ×2 (08:32→16:59)
[2019-12-13 09:18] LABS: HEMATOCRIT. 30.9 % (42.0-52.0); HEMOGLOBIN. 10.1 g/dL (14.0-18.0); MEAN CORPUSCULAR HEMOGLOBIN 28.4 pg (28.0-32.0); MEAN CORPUSCULAR VOLUME 86.8 fL (80.0-94.0); MEAN PLATELET VOLUME 7.6 fl (7.4-10.4); PLATELET 291 x1000/uL (130-400); RED BLOOD CELL COUNT 3.56 mill/uL (4.7-6.1); RED CELL DISTRIBUTION WIDTH 18.7 % (11.6-14.6)
[2019-12-13] MEDS: LORAZEPAM 0.5MG TABLET PO PRN (10:24)
[2019-12-13 14:15] LABS: PLATELET ESTIMATE NORMAL
[2019-12-13] MEDS ORDERED: ACETAMINOPHEN WITH CODEINE 300/30MG TABLET PO PRN (16:00)
[2019-12-13] MEDS: GABAPENTIN 300MG CAPSULE PO SCH ×2 (21:00→21:16)
[2019-12-13] MEDS: DOXAZOSIN MESYLATE 4MG TABLET PO SCH ×2 (21:00→21:17)
[2019-12-14] VITALS (13 sets, daily range): BP systolic 122–167; BP diastolic 57–96
[2019-12-14] MEDS: IPRATROPIUM/ALBUTEROL 0.5-3(2.5)MG/3ML NEB HHN SCH ×4 (01:14→21:16)
[2019-12-14] MEDS: BLOOD SUGAR DIAGNOSTIC STRIP TEST SCH ×4 (05:52→21:32)
[2019-12-14] MEDS: DILTIAZEM HCL 90MG TABLET PO SCH ×4 (05:54→18:34)
[2019-12-14] MEDS: LEVOTHYROXINE SODIUM 25MCG TABLET PO SCH (05:55)
[2019-12-14] MEDS: METHYLPREDNISOLONE SOD SUCC 40 MG/ML VIAL IV SCH ×3 (06:09→22:00)
[2019-12-14] MEDS: SODIUM CHLORIDE 0.9% INJ 3ML FLUSH IVF SCH ×3 (06:09→22:00)
[2019-12-14] MEDS: INSULIN LISPRO 100 UNITS/ML SUBCUT SCH ×5 (08:46→21:23)
[2019-12-14] MEDS: ENOXAPARIN 30MG/0.3ML SYR SUBCUT SCH ×2 (08:47→21:33)
[2019-12-14] MEDS: LOSARTAN POTASSIUM 25 MG TABLET PO SCH (08:47)
[2019-12-14] MEDS: DOCUSATE SODIUM 250MG CAPSULE PO SCH (08:48)
[2019-12-14] MEDS: TAMSULOSIN HCL 0.4MG SR CAPSULE PO SCH (08:48)
[2019-12-14] MEDS: LINAGLIPTIN 5MG TABLET PO SCH (08:49)
[2019-12-14] MEDS: OLANZAPINE 5MG TABLET PO SCH ×3 (08:49→18:35)
[2019-12-14] MEDS: DIVALPROEX SODIUM 250MG DR TABLET PO SCH (21:23)
[2019-12-14] MEDS: DOXAZOSIN MESYLATE 4MG TABLET PO SCH (21:32)
[2019-12-14] MEDS: GABAPENTIN 300MG CAPSULE PO SCH (21:46)
[2019-12-15] VITALS (9 sets, daily range): BP systolic 141–168; BP diastolic 56–120
[2019-12-15] MEDS: DILTIAZEM HCL 90MG TABLET PO SCH ×3 (00:16→14:31)
[2019-12-15] MEDS: IPRATROPIUM/ALBUTEROL 0.5-3(2.5)MG/3ML NEB HHN SCH ×3 (02:25→13:41)
[2019-12-15] MEDS: METHYLPREDNISOLONE SOD SUCC 40 MG/ML VIAL IV SCH ×2 (05:17→14:40)
[2019-12-15] MEDS: SODIUM CHLORIDE 0.9% INJ 3ML FLUSH IVF SCH ×2 (05:18→14:00)
[2019-12-15] MEDS: LEVOTHYROXINE SODIUM 25MCG TABLET PO SCH (06:00)
[2019-12-15] MEDS: INSULIN LISPRO 100 UNITS/ML SUBCUT SCH ×2 (06:33→14:32)
[2019-12-15] MEDS: BLOOD SUGAR DIAGNOSTIC STRIP TEST SCH ×2 (06:39→12:45)
[2019-12-15] MEDS: DIVALPROEX SODIUM 250MG DR TABLET PO SCH (08:05)
[2019-12-15] MEDS: TAMSULOSIN HCL 0.4MG SR CAPSULE PO SCH (08:05)
[2019-12-15] MEDS: DOCUSATE SODIUM 250MG CAPSULE PO SCH (08:05)
[2019-12-15] MEDS: LINAGLIPTIN 5MG TABLET PO SCH (08:05)
[2019-12-15] MEDS: ENOXAPARIN 30MG/0.3ML SYR SUBCUT SCH (08:06)
[2019-12-15] MEDS: OLANZAPINE 5MG TABLET PO SCH (08:07)
[2019-12-15] MEDS ORDERED: LOSARTAN POTASSIUM 50 MG TABLET PO SCH (09:00)
[2019-12-15] MEDS: LORAZEPAM 0.5MG TABLET PO PRN (10:29)
[2019-12-15] MEDS ORDERED: LIDOCAINE HCL 1% 20ML VIAL (Pyxis) INJ ONE (13:14)
[2019-12-15] MEDS ORDERED: SODIUM BICARBONATE 4% (2.4MEQ) 5ML VIAL IV ONE (13:14)
== END 2019-12-15 15:30 | DRG 291 ==
LOC: ER 11:53 → 3WST 15:08 → EDBEDREQTM 15:12 → EDBEDREQ 15:12 → CANRESERV 16:02 → ENRESERV 16:02
PROVIDERS: ADMIT Internal Medicine; ATTEND Internal Medicine
PROC: 5A09357 Assistance with Respiratory Ventilation, Less than 24 Consecutive Hours, Continuous Positive Airway Pressure (ICD-10-PCS; principal; 2019-12-07)
PROC: 5A09357 Assistance with Respiratory Ventilation, Less than 24 Consecutive Hours, Continuous Positive Airway Pressure (ICD-10-PCS; 2019-12-09)
PROC: 5A09357 Assistance with Respiratory Ventilation, Less than 24 Consecutive Hours, Continuous Positive Airway Pressure (ICD-10-PCS; 2019-12-10)
PROC: 5A09357 Assistance with Respiratory Ventilation, Less than 24 Consecutive Hours, Continuous Positive Airway Pressure (ICD-10-PCS; 2019-12-11)
PROC: 5A09357 Assistance with Respiratory Ventilation, Less than 24 Consecutive Hours, Continuous Positive Airway Pressure (ICD-10-PCS; 2019-12-12)
PROC: 5A09357 Assistance with Respiratory Ventilation, Less than 24 Consecutive Hours, Continuous Positive Airway Pressure (ICD-10-PCS; 2019-12-13)
PROC: 5A09357 Assistance with Respiratory Ventilation, Less than 24 Consecutive Hours, Continuous Positive Airway Pressure (ICD-10-PCS; 2019-12-14)
PROC: 5A09357 Assistance with Respiratory Ventilation, Less than 24 Consecutive Hours, Continuous Positive Airway Pressure (ICD-10-PCS; 2019-12-15)
DX: I13.0 Hypertensive heart and chronic kidney disease with heart failure and stage 1 through stage 4 chronic kidney disease, or unspecified chronic kidney disease (principal); J18.9 Pneumonia, unspecified organism; I50.33 Acute on chronic diastolic (congestive) heart failure; J96.20 Acute and chronic respiratory failure, unspecified whether with hypoxia or hypercapnia; N17.9 Acute kidney failure, unspecified; J44.1 Chronic obstructive pulmonary disease with (acute) exacerbation; E87.1 Hypo-osmolality and hyponatremia; F03.91 Unspecified dementia, unspecified severity, with behavioral disturbance; J44.0 Chronic obstructive pulmonary disease with (acute) lower respiratory infection; I42.9 Cardiomyopathy, unspecified; N18.3 Chronic kidney disease, stage 3 (moderate); E11.22 Type 2 diabetes mellitus with diabetic chronic kidney disease; N40.0 Benign prostatic hyperplasia without lower urinary tract symptoms; I48.91 Unspecified atrial fibrillation; I27.29 Other secondary pulmonary hypertension; I25.10 Atherosclerotic heart disease of native coronary artery without angina pectoris; E87.5 Hyperkalemia; Z66 Do not resuscitate; E78.00 Pure hypercholesterolemia, unspecified; E66.01 Morbid (severe) obesity due to excess calories; F29 Unspecified psychosis not due to a substance or known physiological condition; E03.9 Hypothyroidism, unspecified; D64.9 Anemia, unspecified; Z68.36 Body mass index [BMI] 36.0-36.9, adult; Z82.49 Family history of ischemic heart disease and other diseases of the circulatory system; Z91.19 Patient's noncompliance with other medical treatment and regimen; Z87.891 Personal history of nicotine dependence; Z99.81 Dependence on supplemental oxygen; Z79.891 Long term (current) use of opiate analgesic; Z79.02 Long term (current) use of antithrombotics/antiplatelets; Z79.2 Long term (current) use of antibiotics; Z79.899 Other long term (current) drug therapy
CPT/HCPCS: 36415; 36600; 71045; 76770; 80048; 80053; 81003; 82375; 82533; 82550; 82805; 82962; 83036; 83735; 83880; 83935; 84100; 84300; 84443; 84484; 85025; 93005; 93306; 93970; 94640; 94660; 99291; J1160; J1650; J1815; J1940; J2920; J2930; J3475; J3490; J7626